=== PATIENT | male | born 1975 | race Two or more races ===

== ENCOUNTER → 2019-05-16 | Emergency (ER) | payer MEDICARE, OTHER ==
[~2019-05-16] VITALS: Ht 185.4 cm; Wt 195.0 kg
[2019-05-16 17:19] LABS: Basophils # (auto) 0.1 10 ^3/uL (0-0.2); Basophils % (auto) 1.1 % (0.0-2.0); Eosinophils # (auto) 0.4 10 ^3/uL (0-0.8); Eosinophils % (auto) 5.1 % (0.0-7.0); Hematocrit 42.4 % (41.0-53.0); Lymphocytes % (auto) 28.3 % (10.0-50.0); Mean Corpuscular Hemoglobin 32.1 pg (28.0-32.0); Mean Corpuscular Hgb Conc. 35.4 g/dL (32.0-36.0); Mean Corpuscular Volume 90.7 fL (80.0-100.0); Monocytes # (auto) 0.5 10 ^3/uL (0-1.3); Monocytes % (auto) 6.9 % (0.0-12.0); Neutrophils # (auto) 4.2 10 ^3/uL (1.6-8.6); Neutrophils % (auto) 58.6 % (37.0-80.0); Platelet Count (auto) 232 10^3/uL (140-450); Red Blood Cells 4.68 10^6/uL (4.5-5.90); Red Cell Distribution Width 13.1 % (11.8-14.3); White Blood Cell 7.1 10^3/uL (4.4-10.8)
[2019-05-16 17:39] LABS: Alanine Aminotransferase 81 U/L (16-61); Albumin 3.8 g/dL (3.4-5.0); Anion Gap 6 (5-15); Blood Urea Nitrogen 13 mg/dL (7-18); Calcium 8.8 mg/dL (8.5-10.1); Carbon Dioxide 24 mmol/L (21-32); Chloride 110 mmol/L (98-107); Glucose 113 mg/dL (74-106); Magnesium 2.3 mg/dL (1.6-2.6); Potassium 3.8 mmol/L (3.5-5.1); Sodium 140 mmol/L (136-145)
[2019-05-16 17:44] LABS: Alkaline Phosphatase 80 U/L (45-117); Aspartate Aminotransferase 45 U/L (15-37); BUN/Creatinine Ratio 12.4; Bilirubin, Total 0.3 mg/dL (0.2-1.0); GFR African American 100 mL/min; GFR Non-African American 83 mL/min; Total Protein 7.1 g/dL (6.4-8.2)
[2019-05-16 18:07] LABS: Urine Bacteria FEW /hpf (None Seen); Urine Blood Negative /uL (Negative); Urine Mucus FEW (None Seen); Urine Specific Gravity 1.025 (1.001-1.035); Urine WBC 10 /hpf (0 - 3)
[2019-05-16 18:23] LABS: Alcohol, Urine < 3.0 mg/dL (0-5); Amphetamine Screen, Urine NEGATIVE (NEGATIVE); Barbiturate Scree,Urine NEGATIVE (NEGATIVE); Benzodiazephine Screen, Urine NEGATIVE (NEGATIVE); Cannabinoid Screen, Urine POSITIVE (NEGATIVE); Cocaine Screen, Urine NEGATIVE (NEGATIVE); Opiate Scree,Urine NEGATIVE (NEGATIVE); Phencyclidine Screen, Urine NEGATIVE (NEGATIVE)
[2019-05-16 18:53] VITALS: BP 149/80
== END | disposition home or self-care (01) ==
LOC: ER 14:52
DX: J20.9 Acute bronchitis, unspecified (principal); N39.0 Urinary tract infection, site not specified; G47.30 Sleep apnea, unspecified; R79.89 Other specified abnormal findings of blood chemistry; I10 Essential (primary) hypertension; F17.210 Nicotine dependence, cigarettes, uncomplicated; Z88.0 Allergy status to penicillin
CPT/HCPCS: 36415; 70450; 71045; 80053; 80307; 81001; 83735; 84484; 85025

== ENCOUNTER 2019-09-21 16:45 | Inpatient (IN) | payer OTHER ==
[~2019-09-21] VITALS: Ht 205.7 cm; Wt 177.8 kg
[2019-09-21] MEDS ORDERED: SODIUM CHLORIDE 0.9% 1,000 ML IV ONE (17:09)
[2019-09-21] MEDS ORDERED: DexAMETHasone SOD PHOS 10MG/1ML VIAL INJ IV ONE (17:15)
[2019-09-21] MEDS ORDERED: hydrOXYchloroQUINE SULFATE 200 MG TAB PO ONE (17:15)
[2019-09-21] MEDS ORDERED: DOXYCYCLINE 100MG/250ML 250 ML IV ONE (17:15)
[2019-09-21] MEDS ORDERED: ACETAMINOPHEN 325 MG TAB PO ONE ×2 (18:10→18:15)
[2019-09-21 18:57] LABS: Basophils # (auto) 0.1 10 ^3/uL (0-0.2); Basophils % (auto) 0.5 % (0.0-2.0); Eosinophils # (auto) 0.1 10 ^3/uL (0-0.8); Eosinophils % (auto) 0.7 % (0.0-7.0); Hematocrit 42.3 % (41.0-53.0); Hemoglobin 14.8 g/dL (13.5-17.5); Lymphocytes # (auto) 0.8 10 ^3/uL (0.4-5.4); Lymphocytes % (auto) 4.3 % (10.0-50.0); Mean Corpuscular Hemoglobin 32.1 pg (28.0-32.0); Mean Corpuscular Volume 91.7 fL (80.0-100.0); Monocytes # (auto) 0.8 10 ^3/uL (0-1.3); Monocytes % (auto) 4.1 % (0.0-12.0); Neutrophils # (auto) 17.1 10 ^3/uL (1.6-8.6); Neutrophils % (auto) 90.4 % (37.0-80.0); Nucleated Red Blood Cells % 0.1 %; Platelet Count (auto) 278 10^3/uL (140-450); Red Blood Cells 4.62 10^6/uL (4.5-5.90); Red Cell Distribution Width 13.2 % (11.8-14.3); White Blood Cell 18.9 10^3/uL (4.4-10.8)
[2019-09-21 19:07] LABS: Albumin 3.8 g/dL (3.4-5.0); Anion Gap 10 (5-15); Blood Urea Nitrogen 12 mg/dL (7-18); Calcium 8.8 mg/dL (8.5-10.1); Carbon Dioxide 21 mmol/L (21-32); Chloride 102 mmol/L (98-107); Glucose 124 mg/dL (74-106); Potassium 3.6 mmol/L (3.5-5.1); Sodium 133 mmol/L (136-145)
[2019-09-21 19:15] LABS: Alanine Aminotransferase 33 U/L (16-61); Alkaline Phosphatase 76 U/L (45-117); Aspartate Aminotransferase 37 U/L (15-37); BUN/Creatinine Ratio 9.4; Bilirubin, Total 1.2 mg/dL (0.2-1.0); GFR African American 80 mL/min; GFR Non-African American 66 mL/min; Lactate Dehydrogenase 503 U/L (87-241); Total Protein 8.5 g/dL (6.4-8.2)
[2019-09-21] MEDS ORDERED: MORPHINE SULF INJ 2 MG/ML SYRINGE 1ML IV PRN (22:15)
[2019-09-21] MEDS ORDERED: ZOLPIDEM TARTRATE 5 MG TAB PO ONE (22:15)
[2019-09-21] MEDS ORDERED: NITROGLYCERIN 0.4 MG SL TAB SL PRN (22:15)
[2019-09-21] MEDS ORDERED: ENOXAPARIN SOD 40 MG/0.4 ML SYRINGE SC SCH (22:56)
[2019-09-22] MEDS: risperiDONE 1 MG TAB PO SCH ×2 (01:04→22:26)
[2019-09-22] MEDS: GABAPENTIN 300 MG CAP PO SCH ×2 (01:04→10:12)
[2019-09-22] MEDS: LISINOPRIL 5 MG TAB PO SCH ×2 (01:09→10:13)
[2019-09-22] MEDS ORDERED: ALBUTEROL SULF 2.5 MG/0.5ML(0.5%) NEB SOLN HHN SCH (02:00)
[2019-09-22] MEDS ORDERED: ALBUTEROL SULFATE 90 MCG MDI IN ONE (02:23)
[2019-09-22] MEDS ORDERED: TEMAZEPAM 15 MG CAP PO ONE (04:00)
[2019-09-22] MEDS ORDERED: ALBUTEROL SULF HFA 90MCG INH 200DOSE IN SCH ×2 (06:00→14:00)
[2019-09-22] MEDS: ONDANSETRON HCL 4 MG/2 ML VIAL IV PRN ×2 (08:27→22:26)
--- NOTE | 2019-09-22 09:00 | NUR ---
WOUND CARE NOTE: CALLED CECE BARILLAS FOR STAT DELIVERY OF BARIATRIC AIR BED TO BE DELIVERED THIS AM. CECE BARILLAS TECH STATED HE WOULD BE AT [facility] APPROXIMATELY 1100 AM TODAY WITH BARIATRIC BED. ADVISED HOUSE SUP AND MACHINE CLOTHING REPLACER OF NEW STAT ETA.
[2019-09-22] MEDS: cefTRIAXone 1GM/50ML D5W 50 ML IV SCH (09:16)
[2019-09-22 09:46] VITALS: BP 112/56
[2019-09-22] MEDS ORDERED: levoFLOXacin 500MG 100 ML IV SCH (10:00)
[2019-09-22] MEDS: ASCORBIC ACID 500 MG TAB PO SCH (10:12)
[2019-09-22] MEDS: CHOLECALCIFEROL (VITD3) 1,000UNIT=25mCg TAB PO SCH (10:12)
[2019-09-22] MEDS: ZINC SULFATE 220mg CAP or TAB PO SCH (10:12)
[2019-09-22] MEDS: DexAMETHasone 4 MG TAB PO SCH (10:12)
[2019-09-22] MEDS ORDERED: ENOXAPARIN SOD 150 MG/1 ML SYRINGE SC SCH (10:15)
[2019-09-22] MEDS ORDERED: ENOXAPARIN SOD 120 MG/0.8 ML SYRINGE SC ONE (10:30)
[2019-09-22] MEDS: AZITHROMYCIN 500MG/ 250ML 250 ML IV SCH (11:03)
[2019-09-22] MEDS ORDERED: CLOZ50TA4 PO (11:07)
--- NOTE | 2019-09-22 12:30 | NUR ---
Telemetry admit from ER ANGY NICK admitted to Telemetry unit after SBAR received. Patient oriented to BALDOMERO LORD, primary RN, unit, room, bed, and unit policies regarding patient care and visiting hours. Patient now on continuous telemetry monitoring, tele box #89 and telemetry reading on arrival to unit is SR 93. Patient placed on bedside oxygen at 5L/min and encouraged to call if they need something. All questions and concerns addressed, patient verbalized understanding.
--- NOTE | 2019-09-22 14:00 | NUR ---
Skin Patient does not have any open areas, but has small red bump/scar areas to bilateral underarms and buttocks. He said they come and go and he doesn't know what causes them. Patient is morbidly obese, possible this is causing these areas(?).
[2019-09-22 14:28] VITALS: BP 144/78
[2019-09-22] MEDS ORDERED: ALBU2TAB4 NEB (15:37)
[2019-09-22] MEDS ORDERED: GABA-339 PO (15:37)
[2019-09-22] MEDS ORDERED: MULTTAB99 PO (15:37)
[2019-09-22] MEDS ORDERED: LISI2.5T47 PO (15:37)
[2019-09-22] MEDS ORDERED: MELO1TAB73 PO (15:37)
[2019-09-22] MEDS ORDERED: CHOL20007 PO (15:37)
[2019-09-22] MEDS ORDERED: OMEGCAP2 PO (15:37)
[2019-09-22 17:03] VITALS: BP 98/41
[2019-09-22 22:00] VITALS: BP 141/83
[2019-09-22] MEDS: ALBUTEROL SULF 2.5 MG/0.5ML(0.5%) NEB SOLN NEB SCH (22:00)
[2019-09-22] MEDS: ENOXAPARIN SOD 150 MG/1 ML SYRINGE SC SCH (22:26)
[2019-09-22] MEDS: CLOZAPINE 50 MG PO SCH (22:27)
[2019-09-23 05:00] VITALS: BP 120/68
[2019-09-23 05:50] LABS: Basophils # (auto) 0.1 10 ^3/uL (0-0.2); Basophils % (auto) 0.4 % (0.0-2.0); Eosinophils # (auto) 0 10 ^3/uL (0-0.8); Eosinophils % (auto) 0.1 % (0.0-7.0); Hematocrit 39.8 % (41.0-53.0); Hemoglobin 13.7 g/dL (13.5-17.5); Lymphocytes # (auto) 1.3 10 ^3/uL (0.4-5.4); Lymphocytes % (auto) 5.9 % (10.0-50.0); Mean Corpuscular Hemoglobin 31.9 pg (28.0-32.0); Mean Corpuscular Hgb Conc. 34.5 g/dL (32.0-36.0); Mean Corpuscular Volume 92.3 fL (80.0-100.0); Monocytes # (auto) 0.9 10 ^3/uL (0-1.3); Monocytes % (auto) 4.2 % (0.0-12.0); Neutrophils # (auto) 19.1 10 ^3/uL (1.6-8.6); Neutrophils % (auto) 89.4 % (37.0-80.0); Platelet Count (auto) 321 10^3/uL (140-450); Red Blood Cells 4.31 10^6/uL (4.5-5.90); Red Cell Distribution Width 13.2 % (11.8-14.3); White Blood Cell 21.4 10^3/uL (4.4-10.8)
[2019-09-23 06:07] LABS: Calcium 8.8 mg/dL (8.5-10.1); Potassium 3.6 mmol/L (3.5-5.1)
[2019-09-23 06:14] LABS: Albumin 3.2 g/dL (3.4-5.0); BUN/Creatinine Ratio 20.7; Bilirubin, Total 0.6 mg/dL (0.2-1.0); Total Protein 7.7 g/dL (6.4-8.2)
[2019-09-23 06:19] LABS: Urine Amorphous Crystal FEW /hpf (None Seen); Urine Bacteria FEW /hpf (None Seen); Urine Blood Negative /uL (Negative); Urine Mucus FEW (None Seen); Urine Specific Gravity 1.031 (1.001-1.035); Urine WBC 5 /hpf (0 - 3)
[2019-09-23] MEDS: ALBUTEROL SULF 2.5 MG/0.5ML(0.5%) NEB SOLN NEB SCH ×3 (06:33→21:16)
--- NOTE | 2019-09-23 07:30 | NUR ---
Opening Shift Note Assumed care of patient, awake and alert. Patient c/o SOB, paged RT increased oxymizer to 15L, SPO2 91%. Instructed on POC and to call for assist PRN, will continue to monitor for changes Q1hr and PRN. Bed is in lowest position and locked. Call light within reach.
[2019-09-23 08:00] VITALS: BP 121/71
[2019-09-23 09:00] VITALS: BP 121/71
[2019-09-23] MEDS: cefTRIAXone 1GM/50ML D5W 50 ML IV SCH (09:56)
--- NOTE | 2019-09-23 10:30 | NUR ---
COVID COLLECTED RAPID IN HOUSE COVID SWAB AND WALKED TO LAB. WILL AWAIT RESULTS.
[2019-09-23] MEDS: AZITHROMYCIN 500MG/ 250ML 250 ML IV SCH (10:59)
--- NOTE | 2019-09-23 11:00 | NUR ---
IV IV REMOVED FROM RIGHT FOREARM. IV CATHETER WAS INTACT WITH NO SIGNS OF INFECTION. IV 20 G WAS INSERTED IN RIGHT UPPER ARM USING CLEAN TECHNIQUE. PATIENT TOLERATED IV INSERTION WELL WITH NO SIGNS OF DISTRESS OR PAIN. WILL CONTINUE TO MONITOR.
[2019-09-23] MEDS: GABAPENTIN 300 MG CAP PO SCH (11:01)
[2019-09-23] MEDS: CHOLECALCIFEROL (VITD3) 1,000UNIT=25mCg TAB PO SCH (11:01)
[2019-09-23] MEDS: LISINOPRIL 5 MG TAB PO SCH (11:02)
[2019-09-23] MEDS: ASCORBIC ACID 500 MG TAB PO SCH (11:02)
[2019-09-23] MEDS: ZINC SULFATE 220mg CAP or TAB PO SCH (11:02)
[2019-09-23] MEDS: ENOXAPARIN SOD 150 MG/1 ML SYRINGE SC SCH ×2 (11:03→21:36)
[2019-09-23] MEDS: DexAMETHasone 4 MG TAB PO SCH (11:08)
[2019-09-23 13:00] VITALS: BP 125/85
[2019-09-23 16:30] VITALS: BP 139/72
--- NOTE | 2019-09-23 20:45 | NUR ---
Patient request full bed bath and full linen change. We provided full bed bath and full linen. patient tolerated activity good, no SOB, and oxygen saturation is 94%. Will continue to monitor patient.
[2019-09-23] MEDS: ONDANSETRON HCL 4 MG/2 ML VIAL IV PRN (20:52)
--- NOTE | 2019-09-23 21:16 | NUR ---
AT BEDSIDE, PT REFUSED MED NEB TX AND CPAP AT THIS TIME. PT WAS SLEEPING UPON ENTERING THE ROOM, WOKEN UP, NO SIGNS OF RESPIRATORY DISTRESS NOTED. PT WEARING AN OXYMIZER RUNNING AT 15L. HR 89, SPO2 93%, PT ON A CONT BEDSIDE PULSE OX. PT MADE AWARE TO HAVE RT PAGED IF NEEDED, WILL CONTINUE TO MONITOR.
[2019-09-23] MEDS: risperiDONE 1 MG TAB PO SCH (21:36)
[2019-09-23] MEDS: CLOZAPINE 50 MG PO SCH (21:36)
--- NOTE | 2019-09-23 22:00 | NUR ---
PATIENT REFUSED VITALS AT 2200.
--- NOTE | 2019-09-23 22:00 | NUR ---
Refused vital signs. Educated patient on the importance of having vital signs taken, patient verbally acknowledge education given and patient still refused vital signs. Patient states "I just want to sleep". Patient is AOX4.
[2019-09-24 05:00] VITALS: BP 105/54
[2019-09-24] MEDS: ALBUTEROL SULF 2.5 MG/0.5ML(0.5%) NEB SOLN NEB SCH ×3 (06:16→22:00)
--- NOTE | 2019-09-24 06:16 | NUR ---
PT REFUSED MED NEB AT THIS TIME, PT SAID HE WANTS TO PLEASE SLEEP. PT SHOWING NO SIGNS OF RESPIRATORY DISTRESS. PT WAS INFORMED HE COULD CALL IF HE NEEDED MED NEB. RN MADE AWARE. WILL CONTINUE TO MONITOR PT.
[2019-09-24 07:12] LABS: Basophils # (auto) 0 10 ^3/uL (0-0.2); Basophils % (auto) 0.2 % (0.0-2.0); Eosinophils # (auto) 0 10 ^3/uL (0-0.8); Eosinophils % (auto) 0.1 % (0.0-7.0); Hematocrit 39.9 % (41.0-53.0); Hemoglobin 13.7 g/dL (13.5-17.5); Lymphocytes # (auto) 1.5 10 ^3/uL (0.4-5.4); Lymphocytes % (auto) 9.5 % (10.0-50.0); Mean Corpuscular Hemoglobin 31.6 pg (28.0-32.0); Mean Corpuscular Hgb Conc. 34.3 g/dL (32.0-36.0); Monocytes # (auto) 0.8 10 ^3/uL (0-1.3); Monocytes % (auto) 4.8 % (0.0-12.0); Neutrophils # (auto) 13.9 10 ^3/uL (1.6-8.6); Neutrophils % (auto) 85.4 % (37.0-80.0); Platelet Count (auto) 371 10^3/uL (140-450); Red Blood Cells 4.34 10^6/uL (4.5-5.90); Red Cell Distribution Width 13.3 % (11.8-14.3); White Blood Cell 16.3 10^3/uL (4.4-10.8)
[2019-09-24 07:29] LABS: Albumin 2.9 g/dL (3.4-5.0); BUN/Creatinine Ratio 22.4; Calcium 8.8 mg/dL (8.5-10.1); Potassium 3.6 mmol/L (3.5-5.1)
--- NOTE | 2019-09-24 07:30 | NUR ---
Opening Shift Note Assumed care of patient, awake and alert. No S/S of distress/SOB or pain. Instructed on POC and to call for assist PRN, will continue to monitor for changes Q1hr and PRN. Bed is locked and in lowest position. Call light within reach.
[2019-09-24 07:32] LABS: Bilirubin, Total 0.5 mg/dL (0.2-1.0); Total Protein 7.5 g/dL (6.4-8.2)
[2019-09-24 08:00] VITALS: BP 125/59
--- NOTE | 2019-09-24 08:00 | NUR ---
IV PATIENT HAS NO IV ACCESS. PATIENT IV ON RIGHT UPPER ARM WAS PULLED OUT DURING BED BATH. WILL CONTACT DOCTOR TO PLACE MIDLINE FOR IV ANTIBIOTICS. WILL AWAIT ORDERS.
--- NOTE | 2019-09-24 08:05 | NUR ---
RT WAS PAGED TO SEE PT. RECEIVED PT ON 15L OXYMIZER WITH SPO2 77%, HR 98, RR 28. PT REFUSED MORNING MED NEB THIS MORNING. MED NEB GIVEN VIA MOUTHPIECE AT THIS TIME WITH NO ADVERSE RX NOTED. RN AT BEDSIDE. PT WAS PLACED ON A NRB AT 15LPM AND SPO2 INCREASED TO 90%.
[2019-09-24] MEDS ORDERED: LORazepam 2MG/ML-1ML VIAL IV PRN (08:45)
[2019-09-24] MEDS ORDERED: LORazepam 2MG/ML-1ML VIAL ONE (09:00)
[2019-09-24] MEDS: ACETAMINOPHEN 325 MG TAB PO PRN ×2 (09:17→21:25)
--- NOTE | 2019-09-24 09:52 | NUR ---
ROUNDS Dr Cardenas at bedside for rounds, new orders received and followed through. Patient updated on plan of care, verbalized understanding.
[2019-09-24] MEDS: ENOXAPARIN SOD 150 MG/1 ML SYRINGE SC SCH ×2 (10:00→21:25)
[2019-09-24 12:00] VITALS: BP 108/66
--- NOTE | 2019-09-24 12:45 | NUR ---
PULMONARY Message left with Dr Ludwin Huntley's exchange to notify unable to use patient's home CPAP at bedside.
[2019-09-24] MEDS: cefTRIAXone 1GM/50ML D5W 50 ML IV SCH (15:51)
[2019-09-24] MEDS: CHOLECALCIFEROL (VITD3) 1,000UNIT=25mCg TAB PO SCH (15:52)
[2019-09-24] MEDS: ASCORBIC ACID 500 MG TAB PO SCH (15:52)
[2019-09-24] MEDS: ZINC SULFATE 220mg CAP or TAB PO SCH (15:52)
[2019-09-24] MEDS: AZITHROMYCIN 500MG/ 250ML 250 ML IV SCH (15:52)
[2019-09-24] MEDS: GABAPENTIN 300 MG CAP PO SCH (15:52)
[2019-09-24] MEDS: LISINOPRIL 5 MG TAB PO SCH (16:00)
--- NOTE | 2019-09-24 16:03 | NUR ---
RN WAS NOTIFY TO CALL MD REGARDING PT'S OXYGEN NEEDS. PT IS ON NRB AT 15LPM AND 10L OXYMIZER WITH SPO2 88%
--- NOTE | 2019-09-24 16:04 | NUR ---
Midline Placement: Patient educated on need for midline placement. All risks and benefits explained and all questions and concerns addresses prior to procedure. 18g/10cm midline inserted via RIGHT CEPHALIC vein using Ultrasound. Sterile technique utilized. Blood return obtained from THE lumen and flushed easily with NS using proper technique. Midline secured with saline lock; biodisc and occlusive dressing applied. Primary RN notified. Midline lot # [id number].
[2019-09-24 16:34] VITALS: BP 141/68
[2019-09-24] MEDS: ONDANSETRON HCL 4 MG/2 ML VIAL IV PRN (16:36)
[2019-09-24] MEDS: DexAMETHasone 4 MG TAB PO SCH (16:36)
--- NOTE | 2019-09-24 17:02 | NUR ---
VQ SCAN PATIENT WENT DOWN FOR VQ SCAN VIA WHEELCHAIR WITH NON-REBREATHER 15L O2. PATIENT TOLERATED TRANSFER FROM BED TO WHEELCHAIR WITH NO SIGNS OF DISTRESS OR SOB. WILL AWAIT PATIENT RETURN.
[2019-09-24] MEDS: CLOZAPINE 50 MG PO SCH (21:25)
[2019-09-24] MEDS: risperiDONE 1 MG TAB PO SCH (21:25)
[2019-09-24 22:00] VITALS: BP 132/67
--- NOTE | 2019-09-24 22:05 | NUR ---
Respiratory note: PT IS REFUSING SCHED MED NEB TX AT THIS TIME. PT IS CURRENTLY ON 15 L/M OXYMIZER AND 15 L/M NRB: HR 86, RR 20, SPO2 98%. WILL CONTINUE TO PLACE PT ON CPAP AT THIS TIME. WILL CONTINUE TO MONITOR.
[2019-09-25 05:00] VITALS: BP 103/53
[2019-09-25 05:36] LABS: Basophils # (auto) 0 10 ^3/uL (0-0.2); Basophils % (auto) 0.1 % (0.0-2.0); Eosinophils # (auto) 0 10 ^3/uL (0-0.8); Eosinophils % (auto) 0.1 % (0.0-7.0); Hematocrit 40.3 % (41.0-53.0); Hemoglobin 13.9 g/dL (13.5-17.5); Lymphocytes % (auto) 6.5 % (10.0-50.0); Mean Corpuscular Hemoglobin 31.6 pg (28.0-32.0); Mean Corpuscular Hgb Conc. 34.6 g/dL (32.0-36.0); Mean Corpuscular Volume 91.4 fL (80.0-100.0); Monocytes # (auto) 0.5 10 ^3/uL (0-1.3); Monocytes % (auto) 3.4 % (0.0-12.0); Neutrophils # (auto) 13.5 10 ^3/uL (1.6-8.6); Neutrophils % (auto) 89.9 % (37.0-80.0); Platelet Count (auto) 387 10^3/uL (140-450); Red Cell Distribution Width 13.4 % (11.8-14.3)
[2019-09-25 06:03] LABS: Calcium 8.8 mg/dL (8.5-10.1); Potassium 3.8 mmol/L (3.5-5.1)
[2019-09-25 06:07] LABS: BUN/Creatinine Ratio 20.2; Bilirubin, Total 0.6 mg/dL (0.2-1.0); Total Protein 7.7 g/dL (6.4-8.2)
[2019-09-25 06:46] LABS: Albumin 2.5 g/dL (3.4-5.0)
[2019-09-25] MEDS: ALBUTEROL SULF 2.5 MG/0.5ML(0.5%) NEB SOLN NEB SCH ×3 (07:15→22:33)
--- NOTE | 2019-09-25 07:30 | NUR ---
Opening Shift Note Assumed patient care from NOC RN. Patient currently laying supine in bed on 10L oxymizer. Patient SpO2 at 86%, patient placed back on 15L non-rebreather at this time (in addition to oxymizer), SpO2 increased to 91-93%-Patient stated he could not find his Non-rebreather mask and he feels short of breath without it, which is why he was only wearing oxymizer. Respirations even at 20 breaths per minute, but experiencing some shortness of breath at this time, however patient shows no signs of distress at this time. Safety precautions in place, call light placed within reach, patient encouraged to call PRN. Will continue to monitor.
[2019-09-25 08:00] VITALS: BP 127/82
[2019-09-25] MEDS: ONDANSETRON HCL 4 MG/2 ML VIAL IV PRN (08:25)
[2019-09-25] MEDS: cefTRIAXone 1GM/50ML D5W 50 ML IV SCH (08:28)
[2019-09-25] MEDS: ASCORBIC ACID 500 MG TAB PO SCH (09:14)
[2019-09-25] MEDS: CHOLECALCIFEROL (VITD3) 1,000UNIT=25mCg TAB PO SCH (09:15)
[2019-09-25] MEDS: LISINOPRIL 5 MG TAB PO SCH (09:15)
[2019-09-25] MEDS: GABAPENTIN 300 MG CAP PO SCH (09:15)
[2019-09-25] MEDS: ZINC SULFATE 220mg CAP or TAB PO SCH (09:15)
[2019-09-25] MEDS: ENOXAPARIN SOD 150 MG/1 ML SYRINGE SC SCH ×2 (09:16→22:05)
[2019-09-25] MEDS: DexAMETHasone 4 MG TAB PO SCH (09:16)
--- NOTE | 2019-09-25 09:29 | NUR ---
Patient expelled moderate amount of thick, hard, white, blood covered mucous.
--- NOTE | 2019-09-25 09:40 | NUR ---
at bedside Dr. Ibarra at bedside discussing plan of care with patient. Per MD, continue with current treatment.
[2019-09-25] MEDS ORDERED: FUROSEMIDE 20 MG/2 ML VIAL IV ONE (10:00)
[2019-09-25] MEDS: AZITHROMYCIN 500MG/ 250ML 250 ML IV SCH (11:06)
--- NOTE | 2019-09-25 11:46 | NUR ---
Nutrition Assessment Notes please see attached link for complete assessment Est [employer] needs ABW 130 [id number] kcals (17-20kcal/kgABW), Est Protein needs: 130-143 gms/day (1.0-1.1 gm/kgABW). Will continue to monitor and reassess prn. Addendum: 09/25/19 at [address] Amended: Links added.
--- NOTE | 2019-09-25 12:40 | NUR ---
Refusing Vitals Patient refusing vitals at this time, states he "just wants some space."
[2019-09-25 14:08] VITALS: BP 127/82
[2019-09-25 17:00] VITALS: BP 134/59
--- NOTE | 2019-09-25 19:30 | NUR ---
Opening Shift Note Assumed care of patient, awake and alert. No S/S of distress/SOB or pain. Instructed on POC and to call for assist PRN, will continue to monitor for changes Q1hr and PRN. Bed is locked and in lowest position WITH rails up X2. Pt oriented to use of call light for assistance and Call light within reach.
--- NOTE | 2019-09-25 19:51 | NUR ---
Closing Shift Note Report given to NOC RNBeba. Safety precautions in place, call light within reach. Patient on 10L oxymizer, 15L non-rebreather mask. Patient encouraged to call PRN, no signs of distress at this time.
[2019-09-25 22:00] VITALS: BP 117/91
[2019-09-25] MEDS: risperiDONE 1 MG TAB PO SCH (22:06)
[2019-09-25] MEDS: CLOZAPINE 50 MG PO SCH (22:07)
[2019-09-26 05:00] VITALS: BP 125/78
[2019-09-26 05:41] LABS: Hematocrit 41.2 % (41.0-53.0); Hemoglobin 14.2 g/dL (13.5-17.5); Mean Corpuscular Hgb Conc. 34.5 g/dL (32.0-36.0); Mean Corpuscular Volume 92.7 fL (80.0-100.0); Platelet Count (auto) 357 10^3/uL (140-450); Red Blood Cells 4.45 10^6/uL (4.5-5.90); Red Cell Distribution Width 13.2 % (11.8-14.3); White Blood Cell 15.6 10^3/uL (4.4-10.8)
[2019-09-26 06:00] LABS: Basophils % (manual) 0 (0.0-2.0); Blast Cells 0; Eosinophils % (manual) 0 (0-7); Metamyelocytes % 0; Myelocytes % 0; Promyelocytes % 0; Reactive Lymphocytes 0
[2019-09-26 06:01] LABS: BUN/Creatinine Ratio 26.7; Potassium 3.6 mmol/L (3.5-5.1)
[2019-09-26] MEDS: ALBUTEROL SULF 2.5 MG/0.5ML(0.5%) NEB SOLN NEB SCH ×3 (06:02→22:28)
[2019-09-26 06:41] LABS: Band Neutrophils % (manual) 4; Lymphocytes % (manual) 7 (10.0-50.0); Monocytes % (manual) 4 (0-12)
[2019-09-26] MEDS: cefTRIAXone 1GM/50ML D5W 50 ML IV SCH (08:57)
[2019-09-26 09:00] VITALS: BP 122/73
[2019-09-26] MEDS: ZINC SULFATE 220mg CAP or TAB PO SCH (09:00)
[2019-09-26] MEDS: LISINOPRIL 5 MG TAB PO SCH (09:00)
[2019-09-26] MEDS: GABAPENTIN 300 MG CAP PO SCH (09:00)
[2019-09-26] MEDS: ASCORBIC ACID 500 MG TAB PO SCH (09:00)
[2019-09-26] MEDS: ENOXAPARIN SOD 150 MG/1 ML SYRINGE SC SCH ×2 (09:01→21:36)
[2019-09-26] MEDS: DexAMETHasone 4 MG TAB PO SCH (09:01)
[2019-09-26] MEDS: CHOLECALCIFEROL (VITD3) 1,000UNIT=25mCg TAB PO SCH (09:01)
[2019-09-26] MEDS: AZITHROMYCIN 500MG/ 250ML 250 ML IV SCH (10:00)
[2019-09-26 13:00] VITALS: BP 151/92
--- NOTE | 2019-09-26 16:25 | NUR ---
Received a call from Dr. Cardenas to place order for PT, noted and carried it out.
[2019-09-26 16:51] VITALS: BP 141/82
--- NOTE | 2019-09-26 18:09 | NUR ---
Dr. Diana at bedside, received new order, noted and carried it out.
[2019-09-26] MEDS ORDERED: FUROSEMIDE 40 MG/4 ML VIAL IV ONE (18:15)
[2019-09-26] MEDS: risperiDONE 1 MG TAB PO SCH (21:36)
[2019-09-26] MEDS: CLOZAPINE 50 MG PO SCH (21:37)
[2019-09-26 22:00] VITALS: BP 147/69
[2019-09-26] MEDS ORDERED: TEMAZEPAM 15 MG CAP PO ONE (22:30)
[2019-09-27 05:00] VITALS: BP 133/88
[2019-09-27] MEDS: ALBUTEROL SULF 2.5 MG/0.5ML(0.5%) NEB SOLN NEB SCH ×2 (07:15→14:09)
[2019-09-27] MEDS: cefTRIAXone 1GM/50ML D5W 50 ML IV SCH (08:06)
[2019-09-27 08:55] VITALS: BP 124/72
[2019-09-27] MEDS: AZITHROMYCIN 500MG/ 250ML 250 ML IV SCH (09:37)
[2019-09-27] MEDS: ASCORBIC ACID 500 MG TAB PO SCH (09:37)
[2019-09-27] MEDS: GABAPENTIN 300 MG CAP PO SCH (09:37)
[2019-09-27] MEDS: ZINC SULFATE 220mg CAP or TAB PO SCH (09:37)
[2019-09-27] MEDS: CHOLECALCIFEROL (VITD3) 1,000UNIT=25mCg TAB PO SCH (09:37)
[2019-09-27] MEDS: DexAMETHasone 4 MG TAB PO SCH (09:38)
[2019-09-27] MEDS: LISINOPRIL 5 MG TAB PO SCH (09:38)
[2019-09-27] MEDS: ENOXAPARIN SOD 150 MG/1 ML SYRINGE SC SCH ×2 (09:38→21:01)
[2019-09-27 10:08] LABS: Hematocrit 39.6 % (41.0-53.0); Hemoglobin 13.6 g/dL (13.5-17.5); Mean Corpuscular Hemoglobin 31.2 pg (28.0-32.0); Mean Corpuscular Hgb Conc. 34.4 g/dL (32.0-36.0); Mean Corpuscular Volume 90.6 fL (80.0-100.0); Platelet Count (auto) 334 10^3/uL (140-450); Red Blood Cells 4.37 10^6/uL (4.5-5.90); Red Cell Distribution Width 13.2 % (11.8-14.3); White Blood Cell 11.8 10^3/uL (4.4-10.8)
[2019-09-27 10:16] LABS: Basophils % (manual) 0 (0.0-2.0); Blast Cells 0; Metamyelocytes % 0; Myelocytes % 0; Promyelocytes % 0; Reactive Lymphocytes 0
[2019-09-27 10:27] LABS: BUN/Creatinine Ratio 26.7; Calcium 8.8 mg/dL (8.5-10.1); Potassium 3.1 mmol/L (3.5-5.1)
[2019-09-27 10:59] LABS: Band Neutrophils % (manual) 1; Eosinophils % (manual) 2 (0-7); Lymphocytes % (manual) 11 (10.0-50.0); Monocytes % (manual) 3 (0-12)
[2019-09-27 13:00] VITALS: BP 126/76
[2019-09-27] MEDS ORDERED: POTASSIUM CHL 20 Meq TABLET PO ONE (13:30)
[2019-09-27 17:00] VITALS: BP 126/74
[2019-09-27 19:48] VITALS: BP 126/74
[2019-09-27] MEDS: CLOZAPINE 50 MG PO SCH (21:00)
[2019-09-27] MEDS: risperiDONE 1 MG TAB PO SCH (21:01)
[2019-09-27 22:00] VITALS: BP 127/58
[2019-09-28 05:00] VITALS: BP 122/52
[2019-09-28] MEDS: ALBUTEROL SULF 2.5 MG/0.5ML(0.5%) NEB SOLN NEB SCH ×3 (06:00→22:09)
[2019-09-28 06:38] LABS: Hematocrit 41.4 % (41.0-53.0); Hemoglobin 14.1 g/dL (13.5-17.5); Mean Corpuscular Hemoglobin 31.3 pg (28.0-32.0); Mean Corpuscular Hgb Conc. 34.1 g/dL (32.0-36.0); Mean Corpuscular Volume 91.8 fL (80.0-100.0); Platelet Count (auto) 316 10^3/uL (140-450); Red Blood Cells 4.51 10^6/uL (4.5-5.90); Red Cell Distribution Width 13.2 % (11.8-14.3)
[2019-09-28 06:48] LABS: Calcium 8.5 mg/dL (8.5-10.1); Potassium 3.8 mmol/L (3.5-5.1)
[2019-09-28 06:50] LABS: BUN/Creatinine Ratio 27.5
[2019-09-28 07:10] LABS: Band Neutrophils % (manual) 0; Basophils % (manual) 0 (0.0-2.0); Blast Cells 0; Eosinophils % (manual) 0 (0-7); Promyelocytes % 0; Reactive Lymphocytes 0
[2019-09-28 07:33] LABS: Lymphocytes % (manual) 16 (10.0-50.0); Metamyelocytes % 1; Monocytes % (manual) 4 (0-12); Myelocytes % 3
--- NOTE | 2019-09-28 07:39 | NUR ---
OPENING SHIFT NOTE: PATIENT ASLEEP IN BED. EASILY AWOKEN, A/OX4. PATIENT RESPIRATIONS EVEN AND UNLABORED CURRENTLY USING CPAP MACHINE. UPDATED ON PLAN OF CARE ADDRESSED CONCERNS. CALL LIGHT WITHIN REACH, FALL PRECAUTIONS IN PLACE, WILL CONTINUE TO MONITOR.
[2019-09-28 09:00] VITALS: BP 126/87
[2019-09-28] MEDS: cefTRIAXone 1GM/50ML D5W 50 ML IV SCH (09:21)
[2019-09-28] MEDS: GABAPENTIN 300 MG CAP PO SCH (09:21)
[2019-09-28] MEDS: ZINC SULFATE 220mg CAP or TAB PO SCH (09:21)
[2019-09-28] MEDS: DexAMETHasone 4 MG TAB PO SCH (09:21)
[2019-09-28] MEDS: LISINOPRIL 5 MG TAB PO SCH (09:22)
[2019-09-28] MEDS: ASCORBIC ACID 500 MG TAB PO SCH (09:22)
[2019-09-28] MEDS: ENOXAPARIN SOD 150 MG/1 ML SYRINGE SC SCH ×2 (09:22→20:20)
[2019-09-28] MEDS: CHOLECALCIFEROL (VITD3) 1,000UNIT=25mCg TAB PO SCH (09:22)
--- NOTE | 2019-09-28 09:51 | NUR ---
DR. CASTRO ROUNDING: PLAN FOR PLANT TECHNICAL SPECIALIST JEREMY TO CHANGE FROM BIPAP TO OXYMIZER.
[2019-09-28] MEDS: AZITHROMYCIN 500MG/ 250ML 250 ML IV SCH (10:00)
--- NOTE | 2019-09-28 10:02 | NUR ---
BED BATH GIVEN AND FULL LINEN CHANGE COMPLETE.
[2019-09-28 13:00] VITALS: BP 139/70
--- NOTE | 2019-09-28 14:26 | NUR ---
PT IS ON 6 OXYMIZER, TOLERATING CHANGE WELL. SPO2 96%.
--- NOTE | 2019-09-28 14:39 | NUR ---
Nutrition Followup Notes Wt: 176.3 kg Pt`s on BIPAP sleeping with no family by bedside when rounded this am. pt is currently on regular diet with adequate PO of 75% x 4 per RN doc [employer] needs ABW 130 [id number] kcals (17-20kcal/kgABW), Est Protein needs: 130-143 gms/day (1.0-1.1 gm/kgABW). Will continue to monitor and reassess prn. Labs: BUN 19 H, ALB 2.5 L BM: Pt has no BM reported per RN note. Skin: BS 19 low risk, full details in senior resident care director doc PES: Altered nutrition related lab values r.t current chronic medical condition aeb hyperglycemia, mod hypoalb Decreased nutrient needs r/t adiposity aeb pt`s high BMI of 56.1 kgm2 Comments: Will continue to monitor PO status, skin status, pertinent labs and weight trends. Will f/u in 3-5 days. Rec: 1) consider CCHO 75 gm as pt wth hx of DM. 2) consider Glucerna 1 carton bid if PO is low. 3) continue current plan of care
--- NOTE | 2019-09-28 14:47 | NUR ---
PATIENT PLACED ON 8L OXYMIZER PATIENT NOW 90% WAS 84% ON 6L.
[2019-09-28 17:00] VITALS: BP 109/55
--- NOTE | 2019-09-28 17:10 | NUR ---
PT UNABLE TO PARTICIPATE IN P.T. TODAY.
--- NOTE | 2019-09-28 18:38 | NUR ---
CARE ENDORSED TO NOC RN.
--- NOTE | 2019-09-28 20:00 | NUR ---
Patient's 02 sat 98% on 8L via oxymizer. 02 decreased to 6L via oxymizer, 02 sat 96%.
[2019-09-28] MEDS: risperiDONE 1 MG TAB PO SCH (20:19)
[2019-09-28] MEDS: CLOZAPINE 50 MG PO SCH (20:22)
[2019-09-28 22:00] VITALS: BP 143/77
[2019-09-29 05:00] VITALS: BP 111/59
[2019-09-29 06:08] LABS: Hematocrit 42.9 % (41.0-53.0); Hemoglobin 14.9 g/dL (13.5-17.5); Mean Corpuscular Hemoglobin 31.9 pg (28.0-32.0); Mean Corpuscular Hgb Conc. 34.8 g/dL (32.0-36.0); Mean Corpuscular Volume 91.5 fL (80.0-100.0); Platelet Count (auto) 306 10^3/uL (140-450); Red Blood Cells 4.68 10^6/uL (4.5-5.90); Red Cell Distribution Width 13.3 % (11.8-14.3); White Blood Cell 10.4 10^3/uL (4.4-10.8)
[2019-09-29 06:14] LABS: Basophils % (manual) 0 (0.0-2.0); Blast Cells 0; Eosinophils % (manual) 0 (0-7); Promyelocytes % 0; Reactive Lymphocytes 0
[2019-09-29 06:20] LABS: BUN/Creatinine Ratio 25.7; Calcium 8.5 mg/dL (8.5-10.1); Potassium 4.2 mmol/L (3.5-5.1)
[2019-09-29] MEDS: ALBUTEROL SULF 2.5 MG/0.5ML(0.5%) NEB SOLN NEB SCH ×2 (06:27→14:07)
[2019-09-29 06:55] LABS: Band Neutrophils % (manual) 2; Lymphocytes % (manual) 19 (10.0-50.0); Metamyelocytes % 1; Monocytes % (manual) 5 (0-12); Myelocytes % 2
[2019-09-29 08:00] VITALS: BP 135/79
[2019-09-29] MEDS: cefTRIAXone 1GM/50ML D5W 50 ML IV SCH ×2 (08:33→09:00)
--- NOTE | 2019-09-29 08:55 | NUR ---
midline access currently not flushing. will start IV antibiotic once new access is established
[2019-09-29 09:00] VITALS: BP 135/79
--- NOTE | 2019-09-29 09:33 | NUR ---
PATIENT DISCHARGED AT THIS TIME PER MD'S ORDER. VERBALIZED UNDERSTANDING OF DISCHARGE INSTRUCTIONS. MIDLINE DISCONTINUED AND PRESSURE APPLIED TO PREVENT BLEED. PATIENT TOLERATED WELL. TELE MONITOR RETURNED TO ICU. PATIENT ALERT AND ORIENTED X4, LEFT WITH O2 TANK FROM [employer] AT 4L NC ORDERED BY PSYCH SOCIAL WORKER. Addendum: 09/29/19 at 1739 by Cynthia Neal RN [id number] IS ACTUAL DISCHARGE TIME NOT 0933.
--- NOTE | 2019-09-29 09:33 | NUR ---
DR Cardenas at bedside, discussd plan of care with patient. Ordered to changed Zithromax IV to PO 500mg. [facility] MD, [facility] at noon. will carry out order
--- NOTE | 2019-09-29 09:42 | NUR ---
rocephin IV not given. no IV access. aware and ok to not give.
[2019-09-29] MEDS: GABAPENTIN 300 MG CAP PO SCH (09:47)
[2019-09-29] MEDS: ASCORBIC ACID 500 MG TAB PO SCH (09:47)
[2019-09-29] MEDS: LISINOPRIL 5 MG TAB PO SCH (09:47)
[2019-09-29] MEDS: ENOXAPARIN SOD 150 MG/1 ML SYRINGE SC SCH (09:48)
[2019-09-29] MEDS: CHOLECALCIFEROL (VITD3) 1,000UNIT=25mCg TAB PO SCH (09:48)
[2019-09-29] MEDS: ZINC SULFATE 220mg CAP or TAB PO SCH (10:00)
[2019-09-29] MEDS ORDERED: AZITHROMYCIN 250 MG TAB PO SCH (10:00)
[2019-09-29] MEDS: DexAMETHasone 4 MG TAB PO SCH (10:22)
--- NOTE | 2019-09-29 10:31 | NUR ---
Respiratory note: REMOVED PT FROM CPAP AT THIS TIME AND PLACED ON 6L OXYMIZER. PT SAT 96%
--- NOTE | 2019-09-29 11:36 | NUR ---
WOUND CARE NOTE: Wound care in for skin integrity monitoring. Patient continue resting on Bariatric Air bed in Rm. 271B. Patient is awake,alert and oriented. patient is able to turn and reposition self. His Michael score is 19. Patient remain wound free. ANTON Marie at bedside.
[2019-09-29 12:51] VITALS: BP 128/69
[2019-09-29 15:41] VITALS: BP 135/79
== END 2019-09-29 17:38 | disposition home health service (06) | DRG 193 ==
LOC: ER 16:45 → EDBD 16:45 → TELE 16:46 → TELE-WESTW 09-22 12:10
PROVIDERS: ADMIT Hospitalist; ATTEND Hospitalist
PROC: 5A09357 Assistance with Respiratory Ventilation, Less than 24 Consecutive Hours, Continuous Positive Airway Pressure (ICD-10-PCS; principal; 2019-09-24)
PROC: 5A09457 Assistance with Respiratory Ventilation, 24-96 Consecutive Hours, Continuous Positive Airway Pressure (ICD-10-PCS; 2019-09-26)
PROC: 5A09357 Assistance with Respiratory Ventilation, Less than 24 Consecutive Hours, Continuous Positive Airway Pressure (ICD-10-PCS; 2019-09-28)
DX: J18.9 Pneumonia, unspecified organism (principal); J96.01 Acute respiratory failure with hypoxia; Z68.41 Body mass index [BMI] 40.0-44.9, adult; J98.11 Atelectasis; E66.01 Morbid (severe) obesity due to excess calories; I10 Essential (primary) hypertension; G47.33 Obstructive sleep apnea (adult) (pediatric); E78.5 Hyperlipidemia, unspecified; F29 Unspecified psychosis not due to a substance or known physiological condition; Z20.828 Contact with and (suspected) exposure to other viral communicable diseases; F17.210 Nicotine dependence, cigarettes, uncomplicated; F31.9 Bipolar disorder, unspecified; F41.9 Anxiety disorder, unspecified; J45.909 Unspecified asthma, uncomplicated; Z82.49 Family history of ischemic heart disease and other diseases of the circulatory system; Z88.0 Allergy status to penicillin; Z79.899 Other long term (current) drug therapy
CPT/HCPCS: 36415; 36600; 71045; 78582; 80048; 80053; 81001; 82728; 82805; 83605; 83615; 83880; 84484; 85007; 85025; 85027; 85379; 86141; 87040; 87081; 87804; 93306; 94640; 94660; 99291; G0378; J0696; J1100; J2405; J3490